=== PATIENT | male | born 1990 | race African-American/Black ===

== ENCOUNTER 2016-07-03 15:26 | Emergency (ER) | payer BC ==
[~2016-07-03] VITALS: Ht 177.8 cm; Wt 76.0 kg
[2016-07-03 15:49] VITALS: Ht 177.8 cm; Wt 76.0 kg
[2016-07-03] MEDS ORDERED: KETOROLAC TROMETHAMINE 30 MG/ML VIAL IV STA (16:04)
[2016-07-03] MEDS ORDERED: SODIUM CHLORIDE 0.9% 1000ML 2,000 ML IV STA (16:04)
[2016-07-03] MEDS ORDERED: DiphenhydrAMINE HCL 50 MG/ML VIAL IV STA (16:04)
[2016-07-03] MEDS ORDERED: ONDANSETRON INJ 2 MG/ML 2 ML VIAL IV STA (16:04)
--- NOTE | 2016-07-03 16:09 | EMERGENCY ROOM VISIT NOTE ---
History Report prepared by Yonathan: Mariangel Alcala Under the Supervision of: Dr. Osiel Murrell M.D. First contact with patient: 15:58 Chief Complaint: DIARRHEA Stated Complaint: VOMITTING,DIARRHEA History of Present Illness The patient is a 26 year old male who presents to the Emergency Room with complaints of persistent diarrhea starting 0630 this morning. He also reports vomiting and abdominal pain. He denies any hematemesis, bloody stools, or loss of consciousness. He usually does not have diarrhea. He has not been able to keep any fluids down. He might have eaten a bad quesadilla last night. He denies any sick contacts, recent travel, or antibiotic use. He has no other medical problems. He has not taken any tylenol or ibuprofen. Source of History: patient Onset: 629 this morning Position: other (global) Quality: other (diarrhea) Timing: other (persistent) Associated Symptoms: + abdominal pain, + vomiting, No LOC, No hematochezia Note: Pt denies hematemesis. Review of Systems See HPI for pertinent positives & negatives. A total of 10 systems reviewed and were otherwise negative. Family History No pertinent family history stated. Social History Smoking Status: Never Smoker Marital Status: single Occupation Status: employed Current/Historical Medications No Active Prescriptions or Reported Meds Allergies Coded Allergies: No Known Allergies (Unverified , 07/03/16) Physical Exam Vital Signs Date Time Temp Pulse Resp B/P Pulse Ox O2 Delivery O2 Flow Rate FiO2 07/03/16 18:39 38.3 71 20 135/74 98 07/03/16 18:38 71 135/74 98 Room Air 07/03/16 17:21 85 20 137/73 98 Room Air 07/03/16 15:49 38.3 120 16 125/72 98 Room Air Physical Exam GENERAL: Patient is dehydrated appearing and in no acute distress. HEENT: No acute trauma, normocephalic atraumatic, mucous membranes moist, no nasal congestion, no scleral icterus. NECK: No stridor, no adenopathy, no meningismus, trachea is midline. LUNGS: No dyspnea. Clear to auscultation and equal bilaterally. No wheeze, no rhonchi. HEART: Tachycardic rate and regular rhythm. No murmurs, rubs, gallops appreciated. ABDOMEN: Soft, nontender, bowel sounds positive, no masses appreciated, no peritonitis. BACK: No midline tenderness, no CVA tenderness EXTREMITIES: Normal motion all extremities, no cyanosis, no edema. NEUROLOGIC: Alert and oriented, no acute motor or sensory deficits, no focal weakness, cranial nerves grossly intact. SKIN: No rash, no jaundice, no diaphoresis. Medical Decision & Procedures Laboratory Results 07/03/16 16:00 Red Blood Count 5.73, Mean Corpuscular Volume 91.1, Mean Corpuscular Hemoglobin 30.5, Mean Corpuscular Hemoglobin Concent 33.5, Mean Platelet Volume 10.2, Neutrophils (%) (Auto) 90.5, Lymphocytes (%) (Auto) 4.2, Monocytes (%) (Auto) 4.7, Eosinophils (%) (Auto) 0.4, Basophils (%) (Auto) 0.1, Neutrophils # (Auto) 8.56, Lymphocytes # (Auto) 0.40, Monocytes # (Auto) 0.44, Eosinophils # (Auto) 0.04, Basophils # (Auto) 0.01 07/03/16 16:00 Test 07/03/16 16:00 White Blood Count 9.46 K/uL (4.8-10.8) Red Blood Count 5.73 M/uL (4.7-6.1) Hemoglobin 17.5 g/dL (14.0-18.0) Hematocrit 52.2 % (42-52) Mean Corpuscular Volume 91.1 fL (80-100) Mean Corpuscular Hemoglobin 30.5 pg (25-34) Mean Corpuscular Hemoglobin Concent 33.5 g/dl (32-36) Platelet Count 294 K/uL (130-400) Mean Platelet Volume 10.2 fL (7.4-10.4) Neutrophils (%) (Auto) 90.5 % Lymphocytes (%) (Auto) 4.2 % Monocytes (%) (Auto) 4.7 % Eosinophils (%) (Auto) 0.4 % Basophils (%) (Auto) 0.1 % Neutrophils # (Auto) 8.56 K/uL (1.4-6.5) Lymphocytes # (Auto) 0.40 K/uL (1.2-3.4) Monocytes # (Auto) 0.44 K/uL (0.11-0.59) Eosinophils # (Auto) 0.04 K/uL (0-0.5) Basophils # (Auto) 0.01 K/uL (0-0.2) RDW Standard Deviation 41.6 fL (36.4-46.3) RDW Coefficient of Variation 12.5 % (11.5-14.5) Immature Granulocyte % (Auto) 0.1 % Immature Granulocyte # (Auto) 0.01 K/uL (0.00-0.02) Anion Gap 4.0 mmol/L (3-11) Est Creatinine Clear Calc Drug Dose 90.5 ml/min Estimated GFR () 88.5 Estimated GFR (Non- 76.4 BUN/Creatinine Ratio 10.4 (10-20) Calcium Level 9.6 mg/dl (8.5-10.1) Total Bilirubin 1.2 mg/dl (0.2-1) Direct Bilirubin 0.2 mg/dl (0-0.2) Aspartate Amino Transf (AST/SGOT) 22 U/L (15-37) Alanine Aminotransferase (ALT/SGPT) 27 U/L (12-78) Alkaline Phosphatase 87 U/L (45-117) Total Protein 9.5 gm/dl (6.4-8.2) Albumin 5.1 gm/dl (3.4-5.0) Lipase 97 U/L (73-393) Laboratory results as reviewed by me. Medications Administered Medications (Trade) Dose Ordered Sig/Charles Route Start Time Stop Time Status Last Admin Dose Admin Sodium Chloride (Nss 1000ml) 2,000 ml @ 999 mls/hr Q2H1M STAT IV 07/03/16 16:04 07/03/16 18:04 DC 07/03/16 16:22 999 MLS/HR Ondansetron HCl (Zofran Inj) 4 mg NOW STAT IV 07/03/16 16:04 07/03/16 16:05 DC 07/03/16 16:22 4 MG Diphenhydramine HCl (Benadryl Inj) 50 mg NOW STAT IV 07/03/16 16:04 07/03/16 16:05 DC 07/03/16 16:22 50 MG Ketorolac Tromethamine (Toradol Inj) 30 mg NOW STAT IV 07/03/16 16:04 07/03/16 16:05 DC 07/03/16 16:22 30 MG Ondansetron HCl (ZOFRAN ODT 4MG Home Pack) 1 homepack UD ONCE PO 07/03/16 18:30 07/03/16 18:33 DC 07/03/16 18:37 1 HOMEPACK Diphenoxylate HCl/ Atropine (Lomotil Tab) 2 tab NOW ONCE PO 07/03/16 18:30 07/03/16 18:33 DC 07/03/16 18:37 2 TAB ED Course 1558: The patient was evaluated in room B7. A complete history and physical exam was performed. 1604: Toradol Inj 30 mg IV, Benadryl Inj 50 mg IV, Zofran Inj 4 mg IV, NSS 2000 ml @ 999 mls/hr IV. 171: I reevaluated the patient. He is sleeping. He is in no distress. 1809: Reevaluated the patient. Discussed results and discharge instructions: he verbalized understanding and agreement. The patient is ready for discharge. 183: Lomotil Tab 2 tab PO, Ondansetron HCl 1 homepack PO. Medical Decision Differential: Gastroenteritis, Food Borne, Esophageal Perforation, , Electrolyte Abnormality, Dehydration, Intraabdominal Infection, UTI/ Pyelonephritis, Bowel Obstruction, Biliary Pathology, amongst other pathology entertained. 26 yr old male arrives with nausea, vomiting, diarrhea and found to have low grade temp with tachycardia. Abdomen is completely soft without peritonitis. Vastly improved with above and wanting to go home. Labs look good. Will give single dose Lomotil and home with zofran to go pack. Stable and ambulatory without issue. Discussed symptoms requiring RTED. Impression Primary Impression: Nausea vomiting and diarrhea Additional Impression: Dehydration Scribe Attestation The scribe's documentation has been prepared under my direction and personally reviewed by me in its entirety. I confirm that the note above accurately reflects all work, treatment, procedures, and medical decision making performed by me. Departure Information Dispostion Home / Self-Care Prescriptions No Active Prescriptions or Reported Meds Referrals No Doctor, Assigned (PCP) Patient Instructions ED Gastroenteritis Viral, My [facility] Health Problem Qualifiers
[2016-07-03 16:18] LABS: BASO % 0.1 %; BASO ABS # 0.01 K/uL (0-0.2); COMPLETE YES; EOS % 0.4 %; HEMATOCRIT 52.2 % (42-52); IG% 0.1 %; LYMPH % 4.2 %; MEAN CELL VOLUME 91.1 fL (80-100); MEAN CORPUSCULAR HEMOGLOBIN 30.5 pg (25-34); MEAN CORPUSCULAR HGB CONC 33.5 g/dl (32-36); MEAN PLATELET VOLUME 10.2 fL (7.4-10.4); MONO % 4.7 %; NEUT % 90.5 %; PLATELET COUNT 294 K/uL (130-400); RED BLOOD COUNT 5.73 M/uL (4.7-6.1); WHITE BLOOD COUNT 9.46 K/uL (4.8-10.8)
[2016-07-03 16:35] LABS: BUN/CREATININE RATIO 10.4 (10-20); CALCIUM 9.6 mg/dl (8.5-10.1); CREATININE 1.3 mg/dl (0.60-1.40); POTASSIUM 3.7 mmol/L (3.5-5.1)
[2016-07-03] MEDS ORDERED: ONDANSETRON HOME PACK 4MG OD TAB PO ONE (18:30)
[2016-07-03] MEDS ORDERED: DIPHENOXYLATE/ATROPINE 2.5/0.025MG TAB PO ONE (18:30)
[2016-07-03 18:39] VITALS: BP 135/74; PULSE 71; TEMP 38.3; O2SAT 98
== END 2016-07-03 18:40 | disposition home or self-care (01) ==
LOC: C.EDB 15:29
DX: R11.2 Nausea with vomiting, unspecified (principal); R19.7 Diarrhea, unspecified; E86.0 Dehydration; R00.0 Tachycardia, unspecified